=== PATIENT | male | born 1970 | race Caucasian/White ===

== ENCOUNTER 2023-06-28 06:34 | Emergency (ER) | payer SELFPAY ==
[2023-06-28] MEDS ORDERED: Diphtheria,Pertussis(Acell),Tetanus Vaccine 0.5 ML Syringe IM ONE (06:40)
[2023-06-28] MEDS ORDERED: Ondansetron 4 MG Tab.DIS PO ONE (06:42)
[2023-06-28] MEDS ORDERED: Acetaminophen/oxyCODONE 325-5 MG Tab PO ONE (06:42)
[2023-06-28] MEDS ORDERED: Silver Sulfadiazine 1% Crm 400 GM Jar TOP ONE (07:00)
[2023-06-28] MEDS ORDERED: Silver Sulfadiazine 1% Crm 50 GM Tube TOP ONE (07:15)
== END 2023-06-28 07:29 | disposition home or self-care (01) ==
LOC: EDBD 06:34 → JD.ED 06:34
DX: T22.241A Burn of second degree of right axilla, initial encounter (principal); T22.291A Burn of second degree of multiple sites of right shoulder and upper limb, except wrist and hand, initial encounter; T21.21XA Burn of second degree of chest wall, initial encounter; X58.XXXA Exposure to other specified factors, initial encounter
CPT/HCPCS: 16020; 90471; 90715; 99283; A9270